=== PATIENT | male | born 1955 | race Caucasian/White ===

== ENCOUNTER 2021-10-17 22:31 | Emergency (ER) | payer SELFPAY ==
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
== END 2021-10-18 01:15 | disposition home or self-care (01) ==
LOC: JD.ED 22:31
DX: L76.22 Postprocedural hemorrhage of skin and subcutaneous tissue following other procedure (principal)
CPT/HCPCS: 99284

== ENCOUNTER 2021-11-23 08:18 | Day surgery (SDC) | payer MEDICARE, OTHER ==
[2021-11-23] MEDS: Polymyxin B/Trimethoprim 10 ML Bottle EYELF SCH ×4 (08:13→14:20)
[2021-11-23] MEDS: Brimonidine 0.2% Ophth Soln 5 ML Bottle EYELF SCH ×4 (08:19→14:20)
[2021-11-23] MEDS: Phenylephrine 2.5% Ophth Soln 2 ML Bot EYELF SCH ×6 (08:24→14:18)
[2021-11-23] MEDS: Tropicamide 1% Ophth Soln 15 ML Bottle EYELF SCH ×4 (08:32→09:15)
[2021-11-23] MEDS: Tetracaine HCl/PF 0.5% 4 ML Bottle EYEBOTH SCH ×3 (09:29→14:19)
[2021-11-23] MEDS: Lidocaine 1% PF 2 ML SDV INJECT SCH ×2 (09:49→14:19)
[2021-11-23] MEDS: Cefuroxime 10 MG/ML SYRINGE EYELF SCH ×2 (10:06→14:20)
[2021-11-23] MEDS: Pilocarpine 4% Ophth Soln 15 ML Bot EYELF SCH ×2 (10:07→14:20)
== END 2021-11-23 10:20 | disposition home or self-care (01) ==
LOC: JD.SDS 08:18
PROVIDERS: ATTEND Ophthalmology
DX: E11.36 Type 2 diabetes mellitus with diabetic cataract (principal); H25.813 Combined forms of age-related cataract, bilateral; H21.81 Floppy iris syndrome; H21.41 Pupillary membranes, right eye; E78.00 Pure hypercholesterolemia, unspecified; I10 Essential (primary) hypertension; Z98.890 Other specified postprocedural states; Z86.73 Personal history of transient ischemic attack (TIA), and cerebral infarction without residual deficits
CPT/HCPCS: 66982; J0697; C1780

== ENCOUNTER 2021-12-30 10:35 | Day surgery (SDC) | payer MEDICARE, OTHER ==
[2021-12-30] MEDS: Polymyxin B/Trimethoprim 10 ML Bottle EYERT SCH ×4 (11:57→13:44)
[2021-12-30] MEDS: Brimonidine 0.2% Ophth Soln 5 ML Bottle EYERT SCH ×4 (12:02→13:44)
[2021-12-30] MEDS: Phenylephrine 2.5% Ophth Soln 2 ML Bot EYERT SCH ×6 (12:06→13:25)
[2021-12-30] MEDS: Tropicamide 1% Ophth Soln 15 ML Bottle EYERT SCH ×4 (12:11→13:02)
[2021-12-30] MEDS: Tetracaine HCl/PF 0.5% 4 ML Bottle EYEBOTH SCH ×5 (12:23→13:28)
[2021-12-30] MEDS: Lidocaine 1% PF 2 ML SDV INJECT SCH ×2 (13:26→13:29)
[2021-12-30] MEDS: Pilocarpine 4% Ophth Soln 15 ML Bot EYERT SCH ×2 (13:26→13:44)
[2021-12-30] MEDS: Cefuroxime 10 MG/ML SYRINGE EYERT SCH ×2 (13:26→13:43)
== END 2021-12-30 13:55 | disposition home or self-care (01) ==
LOC: JD.SDS 10:35
PROVIDERS: ATTEND Ophthalmology
DX: E11.36 Type 2 diabetes mellitus with diabetic cataract (principal); H25.811 Combined forms of age-related cataract, right eye; H21.81 Floppy iris syndrome; H21.41 Pupillary membranes, right eye; I10 Essential (primary) hypertension; E78.00 Pure hypercholesterolemia, unspecified; Z86.73 Personal history of transient ischemic attack (TIA), and cerebral infarction without residual deficits; Z98.890 Other specified postprocedural states
CPT/HCPCS: 66982; C1780; J0697

== ENCOUNTER 2024-05-07 18:41 | Emergency (ER) | payer MEDICARE, OTHER ==
[2024-05-07] MEDS ORDERED: Sodium Chloride 0.9% 10 ML Syringe FLUSH PRN (19:02)
[2024-05-07] MEDS: Sodium Chloride 0.9% 1,000 ML IV ONE ×2 (19:15→20:11)
[2024-05-07 19:36] LABS: HEMATOCRIT 29.3 % (42.0-52.0); HEMOGLOBIN 9.5 gm/dl (14.0-18.0); MEAN CORPUSCULAR HGB CONC 32.4 g/dl (32.0-36.0); MEAN CORPUSCULAR VOLUME 83.2 fl (83.0-99.0); MEAN PLATELET VOLUME 8.7 fl (9.4-12.4); PLATELET COUNT,PLT 139 K/mm3 (150-400); RED BLOOD CELL COUNT 3.52 M/mm3 (4.52-5.90); WHITE BLOOD CELL COUNT,WBC 8.23 K/mm3 (3.9-11.3)
[2024-05-07] MEDS: Piperacillin/Tazobactam 4.5 GM in Sodium Chloride 0.9% 100 ML IV STA (19:49)
[2024-05-07 19:51] LABS: INR 1.15; PROTHROMBIN TIME 12.1 SECONDS (9.7-12.0)
[2024-05-07] MEDS: Ondansetron 4 MG/2 ML SDV IVPUSH ONE (19:58)
[2024-05-07 20:02] LABS: LACTIC ACID 1.2 mmol/L (0.4-2.0)
[2024-05-07] MEDS: Insulin Regular, Human 100 Units/ML 3 ML Vial IV ONE (20:07)
[2024-05-07 20:08] LABS: A/G RATIO 0.6 (1-2); ALBUMIN 2.6 g/dl (3.4-5.0); ANION GAP 22.2 (5-15); BUN/CREATININE RATIO 23.6 (14-18); C-REACTIVE PROTEIN 16.65 mg/dL (<0.30); CALCIUM 8.6 mg/dL (8.5-10.1); CREATININE 2.2 mg/dL (0.7-1.3); EST CRCL DRUG DOSING (CG) 36.32 mL/min; POTASSIUM,K 4.2 mEq/L (3.5-5.1)
[2024-05-07 20:15] LABS: BAND PERCENT MAN 1 % (0-10); BASOPHILS PERCENT MAN 1 (0.2-1.2); EOSINOPHILS PERCENT MAN 0 % (0.8-7.0); LYMPHOCYTES % ATYPICAL MANUAL 0 %; LYMPHOCYTES PERCENT MAN 5 % (20-40); MONOCYTES PERCENT MAN 8 % (2-10)
[2024-05-07 20:17] LABS: OVALOCYTES 1+ SLIGHT; POIKILOCYTOSIS 1+ SLIGHT
[2024-05-07 20:18] LABS: PLATELET COUNT ESTIMATE DECREASED
[2024-05-07 20:55] LABS: APPEARANCE,URINE CLEAR (Clear); BILIRUBIN,URINE NEGATIVE (Negative); COLOR,URINE YELLOW (Yellow); GLUCOSE,URINE 3+ (Negative); KETONES,URINE 1+ (Negative); LEUKOCYTE ESTERASE,URINE NEGATIVE (Negative); NITRITE,URINE NEGATIVE (Negative); OCCULT BLOOD,URINE 1+ (Negative); PROTEIN,URINE 3+ (Negative); UROBILINOGEN,URINE 0.2 (0.2-1.0)
[2024-05-07 21:03] LABS: BACTERIA,URINE FEW /hpf (FEW); MUCUS,URINE FEW /hpf (FEW); RBC,URINE 20-30 /hpf (0-5); SQUAMOUS EPITHELIAL CELLS,UR 0-5 /hpf (0-5); WBC,URINE 0-5 /hpf (0-5)
[2024-05-07] MEDS: Insulin Regular in 0.9 % NACL 100 ML IV SCH (21:07)
[2024-05-07 21:28] LABS: BASE EXCESS ARTERIAL -6.3 (-2-2.0); BICARBONATE,ARTERIAL 17.4 meq/L (22.0-26.0); O2 SATURATION ARTERIAL 97.3 % (96.0-97.0); PCO2 ARTERIAL 28.8 mmHg (35.0-45.0)
[2024-05-08 00:49] LABS: ANION GAP 13.4 (5-15); BUN/CREATININE RATIO 22.6 (14-18); CALCIUM 8.4 mg/dL (8.5-10.1); CREATININE 2.3 mg/dL (0.7-1.3); EST CRCL DRUG DOSING (CG) 34.74 mL/min; POTASSIUM,K 3.4 mEq/L (3.5-5.1)
[2024-05-08] MEDS: Potassium Chloride 10 MEQ in Premix Bag 1 BAG IV ONE (02:40)
== END 2024-05-08 03:15 ==
LOC: JD.ED 18:41
DX: E10.621 Type 1 diabetes mellitus with foot ulcer (principal); M86.172 Other acute osteomyelitis, left ankle and foot; L03.116 Cellulitis of left lower limb; E10.10 Type 1 diabetes mellitus with ketoacidosis without coma; E78.00 Pure hypercholesterolemia, unspecified; L97.529 Non-pressure chronic ulcer of other part of left foot with unspecified severity; L97.519 Non-pressure chronic ulcer of other part of right foot with unspecified severity; Z79.82 Long term (current) use of aspirin; Z79.84 Long term (current) use of oral hypoglycemic drugs; Z79.899 Other long term (current) drug therapy; Z86.73 Personal history of transient ischemic attack (TIA), and cerebral infarction without residual deficits; R65.10 Systemic inflammatory response syndrome (SIRS) of non-infectious origin without acute organ dysfunction
CPT/HCPCS: 36415; 36600; 71045; 73630; 80048; 80053; 81001; 82803; 82947; 83605; 83690; 83880; 84484; 85007; 85027; 85610; 86140; 87040; 87077; 87186; 93005; 96361; 96365; 96367; 96375; 99285; J1815; J2405; J2543; J3480; J3490; J7030; 93010